=== PATIENT | female | born 1985 | race African-American/Black ===

== ENCOUNTER 2021-07-07 14:42 | Outpatient (REF) | payer BC, SELFPAY ==
[2021-07-07 16:01] LABS: Hematocrit 35.5 % (37-47); Hemoglobin 11.1 g/dl (12.0-16.0); Mean Corpuscular HGB Conc 31.3 g/dl (31.0-35.0); Mean Corpuscular Hemoglobin 18.6 pg (27.0-33.0); Red Cell Distribution Width 17.4 % (11.0-16.0)
[2021-07-07 16:03] LABS: Platelet Count 314 X10*3/uL (160-400); Red Blood Count 5.98 X10*6/uL (4.20-5.50); White Blood Count 10.1 X10*3/uL (4.8-10.8)
[2021-07-07 16:41] LABS: Alanine Aminotransferase 15 U/L (0-31); Albumin Level 4.5 g/dL (3.5-5.0); Alkaline Phosphatase 66 U/L (39-117); Anion Gap 11 (12-20); Aspartate Amino Transferase 14 U/L (5-31); Bilirubin Total 0.6 mg/dL (0.0-1.0); Blood Urea Nitrogen 11 mg/dL (9-16); Calcium 9.3 mg/dL (8.4-10.2); Carbon Dioxide 26 mmol/L (22-29); Chloride 107 mmol/L (96-108); Cholesterol 171 mg/dL; Estimated Glomerular Filt Rate > 60; Glucose Random 83 mg/dL (60-115); HDL Cholesterol 45 mg/dL; LDL Cholesterol Calculated 111 mg/dl; Potassium 4.4 mmol/L (3.3-5.1); Sodium 140 mmol/L (135-145); Total Protein 7.1 g/dL (6.5-8.0); Triglycerides 77 mg/dL
[2021-07-07 17:17] LABS: Mean Corpuscular Volume 59.4 fL (80-98); PLT ABN DIST 1
[2021-07-07 17:23] LABS: Band Neutrophils Percent 1 % (3-5); Basophils Abs Manual 0.1 X10*3/uL (0.0-0.3); Basophils Percent Manual 1 % (0-1); Eosinophils Absolute Manual 0.2 X10*3/UL (0.0-0.8); Eosinophils Percent Manual 2 % (0-4); Lymphocytes Absolute Manual 2.4 X10*3/uL (0.6-4.8); Lymphocytes Percent Manual 24 % (20-40); Monocytes Absolute Manual 0.2 X10*3/uL (0.0-1.2); Monocytes Percent Manual 2 % (2-11); Neutrophils Absolute Manual 7.2 X10*3/uL (2.2-7.9); Neutrophils Percent Manual 70 % (45-73); RBC Morphology NOTED
[2021-07-07 17:24] LABS: Microcytosis 2+ (15-30) /OIF
[2021-07-07 17:25] LABS: Large Platelet PRESENT; Platelet Estimate SLIGHTLY INCREASED (NORMAL); Platelet Morphology Comment NOTED; Schistocytes 1+ (0-2) /OIF; Target Cells 1+ (5-14) /OIF
[2021-07-07 17:26] LABS: Burr Cells 2+ (3-5) /OIF; Hypochromasia 1+ (5-14) /OIF
[2021-07-07 17:27] LABS: Polychromasia 1+ (0-2) /OIF
== END 2021-07-07 14:43 | disposition home or self-care (01) ==
LOC: HO.LAB 14:42
PROVIDERS: PCP Internal Medicine; Visit Provider Internal Medicine
DX: Z00.00 Encounter for general adult medical examination without abnormal findings (principal); I10 Essential (primary) hypertension; D56.8 Other thalassemias; H10.89 Other conjunctivitis; T78.3XXS Angioneurotic edema, sequela
CPT/HCPCS: 36415; 80053; 80061; 85007; 85025; 85027; 86003

== ENCOUNTER 2022-10-26 14:52 | Outpatient (REF) | payer BC, SELFPAY ==
[2022-10-26 15:42] LABS: Basophils Percent Auto 0.2 % (0-2); Imm Gran Abs Auto 0.02 X10*3/uL (0.00-0.03); Imm Gran Pct Auto 0.2 % (0.0-0.4); MANUAL DIFF FLAG SCAN; SCAN SMEAR FLAG 1
[2022-10-26 15:44] LABS: Eosinophils Absolute Auto 0.3 X10*3/uL (0.0-0.4); Eosinophils Percent Auto 3.2 % (0-4); Hematocrit 34.7 % (37.0-47.0); Hemoglobin 10.8 g/dl (12.0-16.0); Mean Corpuscular HGB Conc 31.1 g/dl (31.0-35.0); Mean Corpuscular Hemoglobin 18.2 pg (27.0-33.0); Mean Platelet Volume 10.9 fL (9.4-12.3); Monocytes Absolute Auto 0.4 X10*3/uL (0.1-1.2); Monocytes Percent Auto 5.2 % (2-11); Neutrophils Absolute Auto 4.4 x10*3/uL (2.0-8.3); Neutrophils Percent Auto 54.2 % (45-73); Platelet Count 332 X10*3/uL (160-400); Red Blood Count 5.94 X10*6/uL (4.20-5.50); Red Cell Distribution Width 16.1 % (11.0-16.0); White Blood Count 8.1 X10*3/uL (4.8-10.8)
[2022-10-26 15:45] LABS: Mean Corpuscular Volume 58.4 fL (80.0-98.0); PLT ABN DIST 1
[2022-10-26 16:02] LABS: SLIDE REVIEW VERIFIED
[2022-10-26 16:20] LABS: Alanine Aminotransferase 15 U/L (0-31); Albumin Level 4.2 g/dL (3.5-5.0); Alkaline Phosphatase 63 U/L (39-117); Anion Gap 13 (12-20); Aspartate Amino Transferase 14 U/L (5-31); Bilirubin Total 0.7 mg/dL (0.0-1.0); Blood Urea Nitrogen 14 mg/dL (9-16); Calcium 9.5 mg/dL (8.4-10.2); Carbon Dioxide 25 mmol/L (22-29); Chloride 105 mmol/L (96-108); Cholesterol 162 mg/dL; Estimated Glomerular Filt Rate > 60; Glucose Random 85 mg/dL (60-115); HDL Cholesterol 37 mg/dL; LDL Cholesterol Calculated 113 mg/dl; Potassium 4.5 mmol/L (3.3-5.1); Sodium 138 mmol/L (135-145); Total Protein 6.9 g/dL (6.5-8.0); Triglycerides 64 mg/dL
[2022-10-26 16:36] LABS: Ferritin 63 ng/mL (10-122)
== END 2022-10-26 14:53 | disposition home or self-care (01) ==
LOC: HO.LAB 14:52
PROVIDERS: PCP Internal Medicine; Visit Provider Internal Medicine
DX: Z00.00 Encounter for general adult medical examination without abnormal findings (principal); I10 Essential (primary) hypertension; L80 Vitiligo; D56.8 Other thalassemias
CPT/HCPCS: 36415; 80053; 80061; 82728; 84443; 85025

== ENCOUNTER 2023-07-12 13:36 | Outpatient (REF) | payer BC, SELFPAY ==
[2023-07-12 15:49] LABS: Alanine Aminotransferase 14 U/L (0-31); Albumin Level 4.4 g/dL (3.5-5.0); Alkaline Phosphatase 59 U/L (39-117); Anion Gap 13 (12-20); Aspartate Amino Transferase 16 U/L (5-31); Bilirubin Total 0.5 mg/dL (0.0-1.0); Blood Urea Nitrogen 9 mg/dL (9-16); Calcium 9.8 mg/dL (8.4-10.2); Carbon Dioxide 21 mmol/L (22-29); Chloride 109 mmol/L (96-108); Cholesterol 172 mg/dL (<200); Estimated Glomerular Filt Rate > 60; Glucose Random 85 mg/dL (60-115); HDL Cholesterol 36 mg/dL (>40); LDL Cholesterol Calculated 119 mg/dL (<100); Sodium 139 mmol/L (135-145); Total Protein 7.3 g/dL (6.5-8.0); Triglycerides 88 mg/dL (<150)
[2023-07-12 15:57] LABS: Thyroid Stimulating Hormone 0.77 uIU/mL (0.32-4.0)
== END 2023-07-12 13:37 | disposition home or self-care (01) ==
LOC: HO.LAB 13:36
PROVIDERS: PCP Internal Medicine; Visit Provider Internal Medicine
DX: H00.012 Hordeolum externum right lower eyelid (principal); I10 Essential (primary) hypertension; R63.5 Abnormal weight gain
CPT/HCPCS: 36415; 80053; 80061; 84443